=== PATIENT | female | born 1980 | race Caucasian/White ===

== ENCOUNTER 2017-06-01 17:01 | Emergency (ER) | payer OTHER, MEDICAID ==
[~2017-06-01] VITALS: Ht 160 cm; Wt 74.4 kg
[~2017-06-01 17:01] MED LIST: ABILIFY10 MG PO; ACETAMINOPHEN-1 EAC1 PO; ALBUTEROL SUL5 MG/M1; AMBIEN 5 MG TABL5 MG PO; ANAPROX DS550 MG PO; ATIVAN1 MG PO; AZITHROMYCIN 2250 MG PO; BUSPAR30 MG PO; CARISOPRODOL 3350 MG PO; CEPHALEXIN 500500 M3 PO; CHANTIX1 MG PO; CIPRO250 M1 PO; CIPRO500 MG PO; CIPROFLOXACIN500 M1 PO; CLONAZEPAM; DARVOCET-N 1001 EACH PO; DESYREL100 MG; DOXYCYCLINE 10100 MG PO; DULERA 200 MCG/13 GM; FLEXERIL PO; FLONASE 0.05%50 MCG NASAL; HYDROCODON-ACE1 EAC7 PO; HYDROCODONE-AP1 EAC6 PO; HYDROCODONE-IB1 EACH PO; IBUPROFEN 800800 M1 PO; IBUPROFEN 800800 MG PO; KEFLEX500 MG PO; LIDODERM 5%1 PATC1 TRANSDERM; MEDROL DOSPAK21 TA1 PO; MEDROLDOSEPACK PO; MIRENA; MUCINEX600 MG PO; NAPROSYN500 MG PO; NEBULIZER MISCELL; NEURONTIN 300M300 M2 PO; NEURONTIN600 MG PO; NORCO 5-325 TA1 EAC1 PO; NORCO 5-325 TA1 EACH PO; ORPHENADRINE C100 M2 PO; OSELB75 PO; OXYCODONE HCL 55 MG PO; OXYCODONE HCL5 M1 PO; PAXIL20 MG; PENICILLIN V P500 MG PO; PREDNISONE 10 M10 M1 PO; PREDNISONE 20 M20 MG PO; PREDNISONE 5 MG5 M1; PROAIR HFA8.5 GM IH; PROAIR RESPICL90 MCG INH; PROMETHAZINE D480 ML PO; PROMETHAZINE/C118 ML PO; PROZAC20 MG PO; PROZAC40 MG PO; PYRIDIUM200 M1 PO; PYRIDIUM200 MG PO; RESTORIL15 MG PO; RESTORIL7.5 MG PO; ROBAXIN 750 MG750 M1 PO; ROBAXIN500 MG PO; ROXICODONE5 M2 PO; SUDAFED30 MG PO; TESSALON PERLE100 MG PO; TRAMADOL 50 MG50 MG PO; TRINATE TABLET1 TAB PO; TYLENOL W/CODEI1 TA2 PO; VALIUM5 MG PO; VENTOLIN HFA 1818 GM INH; WELLBUTRIN75 MG PO; XANAX 0.25 MG0.25 MG PO; ZOFRAN4 MG PO; ZPAK PO; [UNRECOGNIZED DRUG - MIXTURE]; [UNRECOGNIZED DRUG - OTHER] MC; [UNRECOGNIZED DRUG - REMARK]
[2017-06-01 17:18] VITALS: BP 101/70
[2017-06-01] MEDS ORDERED: IBUPROFEN 800800 MG PO (17:35)
[2017-06-01] MEDS ORDERED: CYCLOBENZAPRINE10 MG PO (17:35)
== END 2017-06-01 17:44 | disposition home or self-care (01) ==
LOC: M.ERS 17:01
DX: S46.911A Strain of unspecified muscle, fascia and tendon at shoulder and upper arm level, right arm, initial encounter (principal); F31.9 Bipolar disorder, unspecified; F20.9 Schizophrenia, unspecified; F17.210 Nicotine dependence, cigarettes, uncomplicated; Z88.6 Allergy status to analgesic agent; X58.XXXA Exposure to other specified factors, initial encounter; Y93.89 Activity, other specified; Y92.89 Other specified places as the place of occurrence of the external cause; Y99.8 Other external cause status; J44.9 Chronic obstructive pulmonary disease, unspecified